=== PATIENT | male | born 1955 | race Caucasian/White ===

== ENCOUNTER 2022-10-11 20:07 | Emergency (ER) | payer OTHER ==
[~2022-10-11] VITALS: Ht 172.7 cm; Wt 83.9 kg
[2022-10-11 21:10] VITALS: BP_SYST 123
--- NOTE | 2022-10-11 21:10 | NUR ---
PT TRIAGED AND PLACED IN WAITING ROOM BY RN
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
--- NOTE | 2022-10-11 22:24 | NUR ---
DR. BANUELOS EXAMINING PATIENT.
[2022-10-11] MEDS ORDERED: HYDROcodone/ACETAMIN 5-325 MG TAB (NORCO/ VICODIN) PO ONE (22:30)
[2022-10-11] MEDS ORDERED: METH-634 PO (23:35)
[2022-10-11] MEDS ORDERED: ACET-2634 PO (23:35)
[2022-10-11] MEDS ORDERED: LIDO1ADH71 TD (23:35)
[2022-10-11] MEDS ORDERED: ACETAMINOPHEN 500 MG TABLET PO ONE (23:45)
--- NOTE | 2022-10-12 00:09 | NUR ---
Patient given written and verbal discharge instructions and verbalizes understanding. ER DR BANUELOS discussed with patient the results and treatment provided. Patient in stable condition. ID arm band removed. Rx of TYLENOL, LIDOCAINE, ROBAXIN given. Patient educated on pain management and to follow up with PMD. Pain Scale 2/10. Opportunity for questions provided and answered. Medication side effect fact sheet provided.
[2022-10-12 00:15] VITALS: BP_SYST 120
== END 2022-10-12 00:15 | disposition home or self-care (01) ==
LOC: SED 20:07
DX: S20.212A Contusion of left front wall of thorax, initial encounter (principal); S90.112A Contusion of left great toe without damage to nail, initial encounter; Z88.0 Allergy status to penicillin; Z79.899 Other long term (current) drug therapy; V89.2XXA Person injured in unspecified motor-vehicle accident, traffic, initial encounter; Y93.89 Activity, other specified; Y92.89 Other specified places as the place of occurrence of the external cause; Y99.8 Other external cause status
CPT/HCPCS: 71045; 71100; 99284